=== PATIENT | male | born 1975 | race Hispanic/Latino ===

== ENCOUNTER 2018-11-26 18:14 | Inpatient (IN) | payer SELFPAY ==
[~2018-11-26] VITALS: Ht 165.1 cm; Wt 99.8 kg
[2018-11-26 19:09] LABS: BASOPHILS % (AUTO) 0.5 % (0.0-5.0); EOSINOPHILS % (AUTO) 2.5 % (0.0-8.0); HEMATOCRIT 38.5 % (42-54); LYMPHOCYTES % (AUTO) 16.4 % (21.0-51.0); MEAN CORPUSCULAR HEMOGLOBIN 27.3 pg (27.0-33.0); MEAN CORPUSCULAR HGB CONC 34.3 g/dL (32.0-36.0); MEAN CORPUSCULAR VOLUME 79.6 fL (79-99); MONOCYTES % (AUTO) 9.7 % (3.0-13.0); NEUTROPHILS % (AUTO) 70.9 % (40.0-77.0); PLATELET COUNT (AUTO) 248 K/uL (130-400); RED BLOOD CELL COUNT(AUTO) 4.83 MIL/uL (4.50-6.20); RED CELL DISTRIBUTION WIDTH 13.9 % (11.0-15.5); WHITE BLOOD COUNT (AUTO) 8.9 K/uL (4.8-10.8)
[2018-11-26 19:21] LABS: POTASSIUM 4.3 mmol/L (3.5-5.1)
[2018-11-26 19:26] LABS: ALBUMIN 2.8 g/dL (3.5-5.0); BILIRUBIN,DIRECT 0.2 mg/dL (0.0-0.3); BILIRUBIN,TOTAL 0.7 mg/dL (0.2-1.0); TOTAL PROTEIN, SERUM 7.1 g/dL (6.0-8.3)
[2018-11-26] MEDS ORDERED: ZOSYN 3.375GM+NS 50ML 50 ML IV ONE (20:47)
[2018-11-26] MEDS: SODIUM CHLORIDE 0.9% 1000ML 1,000 ML IV SCH (21:07)
[2018-11-26] MEDS ORDERED: MORPHINE SULFATE 4 MG/1ML SYG IV PRN (21:15)
[2018-11-26] MEDS ORDERED: COMPOUND IV REFRIGERATED 1 EACH IVSOLN MISC PRN (21:45)
[2018-11-26] MEDS ORDERED: SODIUM CHLORIDE 0.9% IV ONE ×2 (21:45→21:50)
[2018-11-26] MEDS ORDERED: VANCOMYCIN IV ONE ×2 (21:45→21:50)
[2018-11-26] MEDS ORDERED: VANCOMYCIN PROTOCOL PER PHARMACY IV SCH (21:45)
[2018-11-26] MEDS ORDERED: SODIUM CHLORIDE 0.9% 1000ML 1,000 ML IV ONE (22:10)
[2018-11-27 00:20] VITALS: BP 121/72
[2018-11-27] MEDS ORDERED: GLUCAGON 1MG KIT 1 MG ML IM PRN (02:15)
[2018-11-27] MEDS ORDERED: DEXTROSE 50%-WATER 50 ML DISP.SYRIN IV PRN (02:15)
[2018-11-27 03:00] VITALS: BP 121/81
[2018-11-27] MEDS: ZOSYN 3.375GM+NS 50ML 50 ML IV SCH ×3 (04:20→21:29)
[2018-11-27 04:28] LABS: APPEARANCE,URINE CLEAR (CLEAR); BILIRUBIN,URINE NEGATIVE (NEGATIVE); COLOR,URINE YELLOW (YELLOW); GLUCOSE, URINE (UA) NEGATIVE (NEGATIVE); KETONES,URINE NEGATIVE (NEGATIVE); LEUKOCYTE ESTERASE ,URINE TRACE (NEGATIVE); NITRATE,URINE NEGATIVE (NEGATIVE); OCCULT BLOOD,URINE TRACE-INTACT (NEGATIVE); PH,URINE 5.5 (5.0-8.0); PROTEIN,URINE TRACE mg/dL (NEGATIVE)
[2018-11-27 04:59] LABS: BACTERIA,URINE Rare /HPF (None Seen)
[2018-11-27] MEDS: INSULIN HUMULIN R 100 UNIT/ML 3ML SQ SCH ×4 (06:06→21:30)
[2018-11-27] MEDS: VANCOMYCIN 1.25 GM in SODIUM CHLORIDE 0.9% 250 ML IV SCH ×2 (06:34→18:31)
[2018-11-27 08:00] VITALS: BP 113/72
--- NOTE | 2018-11-27 08:00 | NUR ---
ROUNDS VISITED WITH PATIENT. POC DISCUSSED. DRESSING CHANGE DONE BY MD. NO COMPLAINTS OF PAIN VOICED AT THIS TIME. DRESSING CLEAN DRY AND INTACT. CALL LIGHT WITHIN REACH. WILL CONTINUE TO BE OBSERVED. Addendum: 11/27/18 at 1956 by SONIA MCGEE RN RN Amended: Links added.
[2018-11-27] MEDS: ENOXAPARIN SODIUM 30 MG/0.3 ML SQ SCH ×2 (10:18→21:00)
[2018-11-27] MEDS ORDERED: SERT25TA5 PO (10:29)
[2018-11-27] MEDS ORDERED: ATOR40TA69 PO (10:29)
[2018-11-27] MEDS ORDERED: GABA-531 PO (10:29)
[2018-11-27] MEDS ORDERED: METF-446 PO (10:29)
[2018-11-27] MEDS ORDERED: LISI-613 PO (10:29)
--- NOTE | 2018-11-27 10:30 | NUR ---
DIRK Norris met with pt leslie lives with his Micaela Sanderson [phone]. Pt works, drives, is independent no DME or HH services. Pt sees Dr Taj Bailey, no rx coverage. Denies dc needs at this time, Plan is home at dc Addendum: 11/27/18 at 1032 by WOODY AMARO SS Amended: Links added.
[2018-11-27 12:00] VITALS: BP 123/74
--- NOTE | 2018-11-27 12:00 | NUR ---
MD GALE MEANS VISITED WITH PATIENT AND DAUGHTER AT SIDE. POC DISCUSSED. NO NEW ORDERS AT THIS TIME. FAMILY AWARE. WILL CONTINUE TO BE OBSERVED. Addendum: 11/27/18 at 1944 by SONIA MCGEE RN RN Amended: Links added. Addendum: 11/27/18 at 1945 by SONIA MCGEE RN RN ERROR, WRONG PATIENT
--- NOTE | 2018-11-27 15:32 | NUR ---
Diet Education JAMES Provided Diabetes Nutrition Therapy Diet Education. JAMES reviewed Reference materials and handouts with Pt. Pt was receptive to educational materials. Pt verbalized understanding. Pt encouraged to notify as questions or concerns arise. Addendum: 11/27/18 at [address] Amended: Links added.
[2018-11-27 16:00] VITALS: BP 149/88
[2018-11-27] MEDS: SODIUM CHLORIDE 0.9% 1000ML 1,000 ML IV SCH (17:07)
[2018-11-27] MEDS: GABAPENTIN 300 MG CAPSULE PO SCH ×2 (18:29→21:29)
[2018-11-27 19:00] VITALS: BP 130/85
[2018-11-27] MEDS: METFORMIN HCL 500 MG TABLET PO SCH (21:29)
[2018-11-27] MEDS: ATORVASTATIN CALCIUM 40 MG TABLET PO SCH (21:29)
[2018-11-28] VITALS (21 sets, daily range): BP systolic 108–146; BP diastolic 65–92
[2018-11-28] MEDS: SODIUM CHLORIDE 0.9% 1000ML 1,000 ML IV SCH ×2 (03:07→06:15)
[2018-11-28] MEDS: ZOSYN 3.375GM+NS 50ML 50 ML IV SCH ×3 (04:18→20:41)
[2018-11-28 05:33] LABS: BASOPHILS % (AUTO) 0.6 % (0.0-5.0); EOSINOPHILS % (AUTO) 3.7 % (0.0-8.0); HEMATOCRIT 37.7 % (42-54); LYMPHOCYTES % (AUTO) 17.2 % (21.0-51.0); MEAN CORPUSCULAR HEMOGLOBIN 26.7 pg (27.0-33.0); MEAN CORPUSCULAR HGB CONC 33.1 g/dL (32.0-36.0); MEAN CORPUSCULAR VOLUME 80.9 fL (79-99); MONOCYTES % (AUTO) 8.3 % (3.0-13.0); NEUTROPHILS % (AUTO) 70.2 % (40.0-77.0); NUCLEATED RED BLOOD CELLS 0.1 % (0.0-0.19); PLATELET COUNT (AUTO) 278 K/uL (130-400); RED BLOOD CELL COUNT(AUTO) 4.66 MIL/uL (4.50-6.20); RED CELL DISTRIBUTION WIDTH 13.8 % (11.0-15.5); WHITE BLOOD COUNT (AUTO) 8.7 K/uL (4.8-10.8)
[2018-11-28] MEDS ORDERED: LIDOCAINE HCL 1% 20 ML VIAL ONE (05:39)
[2018-11-28] MEDS ORDERED: BUPIVACAINE/PF 0.5% 30ML VIAL ONE (05:39)
[2018-11-28] MEDS: INSULIN HUMULIN R 100 UNIT/ML 3ML SQ SCH ×4 (05:44→20:42)
[2018-11-28 05:47] LABS: CREATININE 0.8 mg/dL (0.5-1.5); CRP QUANTITATIVE 123.2 mg/L (0.00-9.0); POTASSIUM 4.2 mmol/L (3.5-5.1)
[2018-11-28 05:49] LABS: HEMOGLOBIN A1C 10.4 % (4.0-6.0)
[2018-11-28] MEDS ORDERED: MIDAZOLAM HCL 1 MG/ML 2ML VIAL ONE (06:20)
[2018-11-28] MEDS ORDERED: LIDOCAINE PF 2% 5ML ABBOJECT ONE (06:20)
[2018-11-28] MEDS ORDERED: PROPOFOL 10 MG/ML 20ML VIAL IV ONE ×2 (06:21→07:07)
[2018-11-28] MEDS ORDERED: FENTANYL CITRATE PF 50 MCG/1 ML 2ML VIAL ONE (06:21)
[2018-11-28] MEDS: VANCOMYCIN 1.25 GM in SODIUM CHLORIDE 0.9% 250 ML IV SCH ×3 (06:24→18:06)
[2018-11-28 06:42] LABS: ERYTHROCYTE SEDIMENTATION RATE 75 MM/HR (0-15)
[2018-11-28] MEDS ORDERED: EPHEDRINE SULFATE 50 MG/ML AMPULE ONE (07:00)
--- NOTE | 2018-11-28 08:30 | NUR ---
post op pt received s/p partial toe amputation. pt is awake, alert and oriented- at bedside. post op vitals started. pt has dressing to left foot with boot in place. orders by MD surgeon in chart and carried out. physical therapy to eval and treat following surgeons recommendations. patient denies any pain, and/or shortness of breath. will continue to monitor.
[2018-11-28] MEDS: METFORMIN HCL 500 MG TABLET PO SCH ×2 (08:53→20:42)
[2018-11-28] MEDS: GABAPENTIN 300 MG CAPSULE PO SCH ×3 (08:54→20:42)
[2018-11-28] MEDS: SERTRALINE HCL 50 MG TABLET PO SCH (08:54)
[2018-11-28] MEDS: LISINOPRIL 20 MG TABLET PO SCH (08:54)
--- NOTE | 2018-11-28 09:00 | NUR ---
UPDATE ON DC PLANS SPOUSE CALLED DEE DEE TO [place] ROOM- STAETES HER NEEDS TO GET HIS MEDICAID RE INSTATED BECAUSE HE WILL NOT BE WORKING NOW WITH HIS FOOT. EXPLAINED HE WAS ALREADY SCEENED BUT WILL SEND SCREENER BACK AGAIN TO TALK TO THEM SPOUSE WANTS THE DSGS TO BE DONE AT HOSPITAL AFTER DISCHARGE, EXPLAINED THAT DR. HORNE WILL DO THEM ONCE PER WEEK IN THE OFFICE AND THE REST OF THE TIME SPOUSE WILL DO THEM AT HOME Addendum: 11/28/18 at 1819 by GUERA GASPAR RN CM Amended: Links added.
[2018-11-28] MEDS ORDERED: HYDROMORPHONE 1 MG/1 ML AMP IVP PRN (10:30)
[2018-11-28] MEDS: ENOXAPARIN SODIUM 30 MG/0.3 ML SQ SCH (11:44)
--- NOTE | 2018-11-28 14:30 | NUR ---
Taken over pt's care. Dressing to left foot intact and ortho boot in place. Foot warm to touch. Pt denying pain at the moment
[2018-11-28] MEDS ORDERED: VANCOMYCIN 1.25 GM in SODIUM CHLORIDE 0.9% 250 ML IV SCH (17:00)
[2018-11-28] MEDS: ATORVASTATIN CALCIUM 40 MG TABLET PO SCH (20:41)
[2018-11-28] MEDS: MORPHINE SULFATE 2 MG/ML 1ML SYG IV PRN (20:52)
[2018-11-29] MEDS: VANCOMYCIN 1.25 GM in SODIUM CHLORIDE 0.9% 250 ML IV SCH ×2 (01:44→11:14)
[2018-11-29 04:19] VITALS: BP 118/77
[2018-11-29 04:34] LABS: HEMATOCRIT 36.4 % (42-54); MEAN CORPUSCULAR HEMOGLOBIN 26.6 pg (27.0-33.0); MEAN CORPUSCULAR HGB CONC 33.3 g/dL (32.0-36.0); MEAN CORPUSCULAR VOLUME 79.9 fL (79-99); NUCLEATED RED BLOOD CELLS 0.1 % (0.0-0.19); PLATELET COUNT (AUTO) 285 K/uL (130-400); RED BLOOD CELL COUNT(AUTO) 4.55 MIL/uL (4.50-6.20); RED CELL DISTRIBUTION WIDTH 14.2 % (11.0-15.5)
[2018-11-29 04:56] LABS: CREATININE 0.9 mg/dL (0.5-1.5); POTASSIUM 3.9 mmol/L (3.5-5.1)
[2018-11-29] MEDS: ZOSYN 3.375GM+NS 50ML 50 ML IV SCH ×3 (05:35→21:00)
[2018-11-29] MEDS: INSULIN HUMULIN R 100 UNIT/ML 3ML SQ SCH ×4 (05:38→21:00)
[2018-11-29 07:00] VITALS: BP 97/66
[2018-11-29] MEDS: LISINOPRIL 20 MG TABLET PO SCH (09:00)
[2018-11-29] MEDS: METFORMIN HCL 500 MG TABLET PO SCH ×2 (09:46→23:49)
[2018-11-29] MEDS: SERTRALINE HCL 50 MG TABLET PO SCH (09:46)
[2018-11-29] MEDS: GABAPENTIN 300 MG CAPSULE PO SCH ×3 (09:46→23:49)
[2018-11-29] MEDS: ENOXAPARIN SODIUM 30 MG/0.3 ML SQ SCH (09:47)
[2018-11-29] MEDS: MORPHINE SULFATE 2 MG/ML 1ML SYG IV PRN (11:40)
[2018-11-29 16:00] VITALS: BP_SYST 118; BP_SYST 142; BP_DIAS 74; BP_DIAS 85
[2018-11-29 19:58] VITALS: BP 128/84
--- NOTE | 2018-11-29 20:00 | NUR ---
PM Assessment Received pt with no family around, IV fluids with Zosyn still full dose noted hanging not connected to the pt, IV access noted infiltrated, discontinued aseptically with catheter tip intact. New access initiated to the right FA with good blood return & hooked back up to IV fluid NS at 100cc/hr & run current hanging Zosyn. Pt currently denies pain, stated dressing was change earlier by Dr. Ho & stated duration of IV ABX treatment all depends on Dr. Ramos. Pt made aware we are still waiting for the final wound c/s report.
[2018-11-29] MEDS: ATORVASTATIN CALCIUM 40 MG TABLET PO SCH (23:48)
[2018-11-29 23:59] VITALS: BP 141/85
[2018-11-30] MEDS: VANCOMYCIN 1.25 GM in SODIUM CHLORIDE 0.9% 250 ML IV SCH ×3 (01:55→18:01)
[2018-11-30 04:16] VITALS: BP 127/78
[2018-11-30] MEDS: ZOSYN 3.375GM+NS 50ML 50 ML IV SCH ×2 (05:49→14:09)
[2018-11-30] MEDS: INSULIN HUMULIN R 100 UNIT/ML 3ML SQ SCH ×3 (05:49→16:30)
[2018-11-30 06:58] LABS: HEMATOCRIT 36.7 % (42-54); MEAN CORPUSCULAR HEMOGLOBIN 26.1 pg (27.0-33.0); MEAN CORPUSCULAR HGB CONC 32.7 g/dL (32.0-36.0); MEAN CORPUSCULAR VOLUME 79.9 fL (79-99); PLATELET COUNT (AUTO) 323 K/uL (130-400); RED BLOOD CELL COUNT(AUTO) 4.59 MIL/uL (4.50-6.20); RED CELL DISTRIBUTION WIDTH 13.6 % (11.0-15.5); WHITE BLOOD COUNT (AUTO) 6.3 K/uL (4.8-10.8)
[2018-11-30 07:00] VITALS: BP 116/76
[2018-11-30 07:15] LABS: CREATININE 0.8 mg/dL (0.5-1.5); POTASSIUM 4.1 mmol/L (3.5-5.1)
[2018-11-30] MEDS: GABAPENTIN 300 MG CAPSULE PO SCH ×2 (09:22→14:09)
[2018-11-30] MEDS: SERTRALINE HCL 50 MG TABLET PO SCH (09:22)
[2018-11-30] MEDS: METFORMIN HCL 500 MG TABLET PO SCH (09:22)
[2018-11-30] MEDS: ENOXAPARIN SODIUM 30 MG/0.3 ML SQ SCH (09:22)
[2018-11-30] MEDS: LISINOPRIL 20 MG TABLET PO SCH (09:22)
[2018-11-30 11:00] VITALS: BP 140/86
[2018-11-30 16:00] VITALS: BP 146/88
--- NOTE | 2018-11-30 16:39 | NUR ---
DC Plan Patient cleared for DC by Pending clearance from Dr. Ho. Patient's spouse learning how to do dressing changes. CD Addendum: 11/30/18 at 1640 by LAURA BACH CM Amended: Links added.
--- NOTE | 2018-11-30 18:33 | NUR ---
DISCHARGE PATIENT/SPOUSE GIVEN DISCHARGE INSTRUCTIONS VIA TEACH BACK. 20G PIV TO LF DISCONTINUED, TIP INTACT. INSTRUCTED AND DEMONSTRATION PROPER WOUND CARE TO LEFT FOOT PER OZZEI DALLAS'S ORDERS. SPOUSE ABLE AND WILLING TO PERFORM WOUND CARE. NON-WEIGHT BEARING TO LEFT FOOT. PATIENT TO USE WALKER OR CRUTCHES. POST -OP SHOE IN PLACE . PATIENT TO FILL RX FOR LEVOFLOXACIN 750MG 1 TAB PO QD X [address] FOLLOW UP WITH DR. HORNE IN 2 WEEKS. PATIENT STABLE AT THIS TIME. SPOUSE AT BEDSIDE TO TRANSPORT PATIENT HOME. JAYNE CULLEN TO WHEEL PATIENT DOWNSTAIRS TO VEHICLE.
== END 2018-11-30 19:03 | disposition home or self-care (01) | DRG 617 ==
LOC: EDH 18:14 → EDHIP 18:15 → 3CH 23:52
PROVIDERS: ADMIT Internal Medicine; ATTEND Internal Medicine
PROC: 0Y6N0Z9 Detachment at Left Foot, Partial 1st Ray, Open Approach (ICD-10-PCS; principal; 2018-11-28 06:25)
DX: E11.69 Type 2 diabetes mellitus with other specified complication (principal); E44.0 Moderate protein-calorie malnutrition; M86.172 Other acute osteomyelitis, left ankle and foot; L02.612 Cutaneous abscess of left foot; L03.032 Cellulitis of left toe; E11.621 Type 2 diabetes mellitus with foot ulcer; I10 Essential (primary) hypertension; E66.9 Obesity, unspecified; E78.5 Hyperlipidemia, unspecified; L97.529 Non-pressure chronic ulcer of other part of left foot with unspecified severity; Z79.4 Long term (current) use of insulin; Z91.19 Patient's noncompliance with other medical treatment and regimen; Z68.36 Body mass index [BMI] 36.0-36.9, adult; Z89.421 Acquired absence of other right toe(s)
CPT/HCPCS: 36415; 73660; 73718; 80048; 80076; 80202; 81001; 82948; 83036; 83605; 85025; 85027; 85651; 86140; 87070; 87076; 87077; 87186; 87205; 88304; 88311; 93925; 93971; 97039; G0378; J1650; J1815; J2001; J2250; J2543; J2704; J3010; J3370; J3490; J7030

== ENCOUNTER 2024-05-03 09:02 | Emergency (ER) | payer OTHER, MEDICARE ==
[~2024-05-03] VITALS: Ht 165.1 cm; Wt 99.8 kg
[~2024-05-03 09:02] MED LIST: ATOR40TA69 PO; GABA-531 PO; LISI20TA24 PO; METF-446 PO; SERT-438 PO
--- NOTE | 2024-05-03 09:43 | ERN ---
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 Allergies: Coded Allergies: No Known Allergies (Verified Allergy, Unknown, 11/26/18) Home Meds Active Scripts Amoxicillin/Potassium Clav (Amox Tr-K Clv 875-125 mg Tab) 875 Mg-125 Mg Tablet, 1 TAB PO BID for 10 Days, #20 TAB 0 Refills Prov:DOMO PRATT DO 05/03/24 Reported Medications Atorvastatin Calcium (LIPITOR) 40 Mg Tablet, 40 MG PO HS, TAB 11/27/18 Gabapentin (Gabapentin) 300 Mg Capsule, 300 MG PO TID, CAP 11/27/18 Sertraline HCl (Sertraline HCl) 25 Mg Tablet, 25 MG PO AM, TAB 11/27/18 Metformin HCl (Metformin HCl) 1,000 Mg Tablet, 1000 MG PO BID, TAB 11/27/18 Lisinopril (Lisinopril) 20 Mg Tablet, 20 MG PO AM, TAB 11/27/18 Past Medical History Past Medical History: Anxiety, Diabetes-Type I, Diabetes-Type II, Hypertension, TIA Surgical History: Other Surgical History Other: AMPUTATIONS TO RT AND LEFT TOE Social History: Negative Review of System Dictation Constitutional: Negative for fever,chills, and weight loss Eyes: Negative for injury, pain,redness, and discharge ENT: Negative for injury,pain or swelling Cardiovascular: Negative for chest pain, palpitations, and edema Respiratory: Negative for shortness of breath, cough, and wheezing, Abdomen/GI: Negative for abdominal pain, nausea, vomiting, diarrhea, and constipation Back: Negative for injury and pain : Negative for injury, bleeding and discharge MS/Extremity: Right finger laceration deformity Skin: Negative for rash, and discoloration Neuro: Negative for headache, weakness, numbness, tingling, and seizure Psych: Negative for suicide ideation, homicidal ideation, and hallucinations Initial Vital Sign VS Vital Signs Date Time Temp Pulse Resp B/P (MAP) Pulse Ox O2 Delivery O2 Flow Rate FiO2 05/03/24 09:03 97.9 82 16 170/101 99 Room Air 0 05/03/24 10:29 21 Physical Exam Dictation General: awake, alert, NAD Head/Face: Normocephalic, atraumatic Eyes: PERRL, EOMI, vision at baseline ENT: oral cavity clear, TMs clear, no signs of infection Neck: Trachea midline, supple, no nuchal rigidity Cardiovascular: RRR, normal S1/S2, No MRGs, no JVD Respiratory: CTAB, no respiratory distress, No rales or wheezes Abdomen: Soft, non-tender, non-distended, normal bowel sounds, no guarding or rebound. Skin: Warm, dry, normal turgor, no rash MS/Extremity: Pulses equal, no cyanosis, neurovascular intact, FROM, 1 cm laceration to right 5th digit at MCP joint Neuro: COAx4, GCS 15, strength 5/5, CN 2-12 intact, normal cerebellar exam, normal gait, Psych: Normal behavior, mood, and affect normal ED Course ED Course Orders Procedure Category Date Status Time Tetanus,Diphtheria PHA 05/03/24 Complete Tox [Adult] (Diphther 10:00 Current Medications Medications (Trade) Dose Ordered Sig/Sofia Route PRN Reason Start Time Stop Time Status Last Admin Dose Admin Tetanus/ Diphtheria Toxoids Adsorbed (DiphthERIA-teTANUS TOXOID [ADULT]/ DECAVAC) 0.5 ml ONCE ONCE IM 05/03/24 10:00 05/03/24 10:01 DC 05/03/24 10:19 Vital Signs Date Time Temp Pulse Resp B/P (MAP) Pulse Ox O2 Delivery O2 Flow Rate FiO2 05/03/24 10:29 98.1 78 18 133/78 98 Room Air* 0 21 05/03/24 09:03 97.9 82 16 170/101 99 Room Air 0 Medical Decision Making MDM MDM: Differential diagnosis: Finger laceration, laceration repair, finger injury Previous outside records reviewed: Old ER visits. Need for hospitalization: Patient does not meet criteria for hospitalization. Need for emergency major/minor surgery: No Patient's prior external medical records from other ER visits were reviewed by me as indicated. Prior testing and results from previous visits were reviewed. Prior tests were taken into account with medical decision making and resource utilization, independent historian/historians were used to obtain complete medical history. I independently interpreted the test that were performed, results were reviewed by me and considered findings on radiology if ordered. Medical management and examination interpretation discussions were had by me with other qualified healthcare professionals as indicated for the patient's care. Patient has a finger lab he had superficial. No bony involvement. It was a clean knife. It was cleaned out thoroughly. Tetanus updated. Wound repaired. Placed in wet-to-dry in a splint. No complications. We will discharge with antibiotics because he has high-risk. Patient is agreeable. Procedure Procedure Dictation: Right 5th digit 1.5 laceration repair total time: 15 minutes. Cleaned wound with chlorhexidine Patient tolerated procedure well. Wound Location: upper extremity (Right 5th digit 1.5 cm laceration) Wound's Depth, Shape: superficial Wound Explored: clean Anesthesia: 1% Lidocaine (4 mLs for digit block) Wound Repaired With: sutures Suture Size/Type: 4:0 (ethilon) Number of Sutures: 5 DX & DISP Disposition: Discharge Departure Impression: Primary Impression: Hand laceration Additional Impression: Laceration of finger of right hand Condition: Stable Scripts Amoxicillin/Potassium Clav (Amox Tr-K Clv 875-125 mg Tab) 875 Mg-125 Mg Tablet 1 TAB PO BID for 10 Days, #20 TAB 0 Refills Prov: DOMO PRATT DO 05/03/24 Additional Instructions: Your finger laceration was repaired in the ER. You have five sutures. As we discussed, keep the wound clean with soap and water. I recommend keeping it covered and wear the finger splint for about 72 hours. After that you can remove the finger splint and keep it covered with a Band-Aid. Your tetanus was updated here in the ER. I have prescribed Augmentin, which is an antibiotic. Take as prescribed to prevent infection. The sutures we will need to be removed in 7-10 days. You can return to the emergency department or follow up with your primary doctor for suture removal. Monitor for any signs of infection. Please return to the emergency department if you develop any redness, discharge, or any other concerning symptom. Referrals: AXEL CROOKS MD (PCP) I have reviewed, & agreed with my scribe's, documentation. (Entered by Norberto Vernon, acting as a scribe for Dr. Pratt) I personally scribed for DOMO PRATT DO ([email or web address]) on 05/03/24 at 09:43. Electronically submitted by Norberto Vernon ([employer]). I personally scribed for DOMO PRATT DO (SUSHILA) on 05/03/24 at 09:56. Electronically submitted by [employer] Vernon ([employer]). I personally scribed for DOMO PRATT DO (SUSHILA) on 05/03/24 at 10:00. Electronically submitted by [employer] Vernon ([employer]). DMOO PRATT DO May 03, 2024 09:43
[2024-05-03] MEDS ORDERED: AMOX1TAB16 PO (09:57)
[2024-05-03] MEDS: teTANUS/diphthERIA TOXOID [ADULT] 0.5 ML VIAL IM ONE (10:19)
[2024-05-03 10:29] VITALS: BP 133/78; PULSE 78; RESP 18; TEMP 98.1; O2SAT 98
== END 2024-05-03 10:29 | disposition home or self-care (01) ==
LOC: EDH 09:02
DX: S61.216A Laceration without foreign body of right little finger without damage to nail, initial encounter (principal); E11.9 Type 2 diabetes mellitus without complications; I10 Essential (primary) hypertension; F41.9 Anxiety disorder, unspecified; Z79.84 Long term (current) use of oral hypoglycemic drugs; Z79.899 Other long term (current) drug therapy; Z86.73 Personal history of transient ischemic attack (TIA), and cerebral infarction without residual deficits; Z98.890 Other specified postprocedural states; W26.8XXA Contact with other sharp object(s), not elsewhere classified, initial encounter; Y93.89 Activity, other specified; Y92.89 Other specified places as the place of occurrence of the external cause; Y99.8 Other external cause status
CPT/HCPCS: 12001; 90471; 90714; 99283

== ENCOUNTER → 2024-11-24 | Outpatient (CLI) | payer MEDICARE, OTHER ==
[~2024-11-24] MED LIST changes: +AMOX1TAB16 PO
--- NOTE | 2024-11-24 15:34 | HMCIMG ---
US ARTERIAL BILAT LOW EXT DUPL REASON: of type 2 diabetes mellitus with foot ulcer, COMPARISON: None TECHNIQUE: Bilateral lower extremity arterial Doppler evaluation was performed with spectral analysis and color flow imaging. FINDINGS: Right leg shows triphasic triphasic waveforms present throughout both lower extremities. This includes the posterior tibial, anterior tibial and dorsalis pedis arteries on both sides. Flow velocities are preserved as well. There is no evidence of arterial inflow occlusion. IMPRESSION: 1. Normal bilateral lower extremity arterial Doppler vascular evaluation.
== END | disposition home or self-care (01) ==
LOC: RAH 10:42
PROVIDERS: ATTEND Internal Medicine
DX: E11.621 Type 2 diabetes mellitus with foot ulcer (principal); L97.529 Non-pressure chronic ulcer of other part of left foot with unspecified severity; L97.519 Non-pressure chronic ulcer of other part of right foot with unspecified severity; Z89.422 Acquired absence of other left toe(s); Z89.421 Acquired absence of other right toe(s)
CPT/HCPCS: 93925